=== PATIENT | female | born 1955 | race Caucasian/White ===

== ENCOUNTER 2023-06-08 09:36 | Inpatient (IN) | payer MEDICARE, OTHER, SELFPAY ==
--- NOTE | ~2023-06-08 | XR_ITS ---
EXAMINATION: XR HIP, LEFT CLINICAL INFORMATION: Pain status post fall COMPARISON: None available. TECHNIQUE: Two views of the left hip. FINDINGS: There is intertrochanteric fracture without displacement of the left hip. Soft tissues unremarkable. Visualized pelvic bones are normal XR/XR hip LT w PEL1V IMPRESSION: Intertrochanteric undisplaced fracture.
--- NOTE | ~2023-06-08 | FL_ITS ---
EXAMINATION: XR FLUOROSCOPY WITH IMAGES CLINICAL INFORMATION: Left hip fracture COMPARISON: Previous x-ray 06/08/2023 TECHNIQUE: Fluoroscopy Supervised By: Dr. Charly Chong. Fluoroscopy Time: 0.5 minutes. Cumulative Dose: 16 mGy. DAP: 0.28 mGym2. Images: 4. FINDINGS: Images demonstrate an intramedullary jose g, proximal compression/lag screw and distal cortical screw transfixing the left femoral intertrochanteric fracture with improved alignment. FL/FL guidance in OR IMPRESSION: Fluoroscopy guidance for ORIF of left femoral intertrochanteric fracture.
--- NOTE | ~2023-06-08 | XR_ITS ---
EXAMINATION: XR CHEST CLINICAL INFORMATION: Preoperative clearance COMPARISON: None TECHNIQUE: Frontal view of the chest was obtained. FINDINGS: No significant abnormality is noted involving the heart, lungs, mediastinum. There is diffuse osteopenia, dextroscoliosis, status post T12 vertebroplasty. XR/XR chest 1V IMPRESSION: No active cardiopulmonary disease
[2023-06-08 09:39] VITALS: BP 135/79; BP 140/75; PULSE 65; RESP 18; TEMP 36.4; O2SAT 95; O2SAT 97; BMI 27.8
--- NOTE | 2023-06-08 09:51 | ED_ITS ---
HPI - Fall General Chief Complaint: Fall Stated Complaint: FALL,W/L HIP PAIN W/ROTATION,-THIN,-HEADSTRIKE Time Seen by Provider: 06/08/23 09:45 Source: patient and EMS Mode of arrival: EMS Limitations: no limitations History of Present Illness HPI Narrative: 67 yo female with history of emphysema and seizures who presents to the ER from home for evaluation of left hip pain after she tripped over her dog and fell onto her left side on the ceramic floor this morning. She was unable to get up due to severe pain. She did not hit her head or lose consciousness. She is not on blood thinners. She states pain is 5/10 at rest and with any movement her pain shoots up to a 10/10. She arrives to the ER with LLE shortened and externally rotated. MD complaint: fall Onset (ago): minute(s) Fall from: standing Fall witnessed: no Place fall occurred: home Loss of consciousness: none Prolonged down time: no Symptoms prior to fall: none Context: tripped/slipped Location of injury: pelvis (left hip) Severity: moderate Severity scale (1-10): 5 Quality: sharp, stabbing and aching Associated symptoms (after fall): unable to walk Related Data Allergies Allergy/AdvReac Type Severity Reaction Status Date / Time Horse/Equine Containing Allergy Unknown RASH/SWELLING Verified 06/08/23 09:47 Products TO HORSE [Horse/Equine Product TETANUS Derivatives] Penicillins [PENICILLINS] Allergy Unknown ? Verified 06/08/23 09:47 phenobarbital [PHENOBARBITAL] Allergy Unknown ? SEIZURE Verified 06/08/23 09:47 From Novocain Allergy Unknown UNKNOWN Uncoded 05/14/20 15:39 Review of Systems 2 Review of Systems: Yes all other systems are reviewed and are negative PMFSH Social History Social History Smoked in Last 30 Days: No Use of substances other than those prescribed or required for medical reasons: No Advance Directives: Yes Advance Directives Information Provided: No Advance Directives on File: No Physical Exam 2 Vital Signs: Vital Signs: Last Vital Signs Temp 97.5 F 06/08/23 09:39 Pulse 65 06/08/23 09:39 Resp 16 06/08/23 10:00 BP 140/75 H 06/08/23 09:39 Pulse Ox 95 06/08/23 09:39 O2 Del Method Room Air 06/08/23 09:39 BMI result Body Mass Index 27.8 Appearance: Alert. Oriented X3. No acute distress. Head: normocephalic, atraumatic. Eyes: Pupils equal, round and reactive to light. ENT: Pharynx normal. No tonsillar swelling or exudate. Neck: Normal inspection. Neck supple. CVS: Normal heart rate and rhythm. Pulses normal. Respiratory: No respiratory distress. Breath sounds normal. Abdomen: Soft and nontender. +BS x4 Skin: Skin warm and dry. Normal skin color. Normal skin turgor. No rashes. Extremities: No lower extremity edema. left lower extremity is shortened and externally rotated. tender anterior and lateral left hip, unable to range at all. nontender left thigh, knee, lower leg and ankle. NV intact distally. Neuro/psych: Oriented X 3. No motor deficit. No sensory deficit. CN II-XII intact. Normal speech and cognition. Medications Administered Discontinued Medications Generic Name Dose Route Start Last Admin Trade Name Freq PRN Reason Stop Dose Admin Acetaminophen 975 mg 06/08/23 09:45 06/08/23 09:52 Acetaminophen 325 Mg Tablet PO 06/08/23 09:46 975 mg ONCE ONE Administration Oxycodone HCl 5 mg 06/08/23 09:45 06/08/23 09:52 Oxycodone Hcl Immed Release 5 Mg Tablet PO 06/08/23 09:46 5 mg ONCE ONE Administration Medical Decision Making Medical Decision Making MDM Narrative: 67-year-old female with history of emphysema and seizure disorder presents to the ER for evaluation after she tripped and fell over her dog in the kitchen this morning. Fell onto her left hip. Had immediate pain was unable to get up. No head strike or loss of consciousness. She is on anticoagulation. She has no headache or neck pain. No pain besides the left hip. She is unable to range the hip, it is externally rotated and slightly shortened. Concern for fracture. Basic lab workup was unremarkable. Chest x-ray empirically done for presumed preop clearance. X-ray of the hip confirms a nondisplaced intertrochanteric left hip fracture. Will admit orthopedic service for further treatment. Patient updated on plan of care. Pain much better after a dose of oxycodone and Tylenol. Differential Diagnosis Differential Diagnoses: The differential diagnosis associated with the presentation includes hip fracture, pelvic fracture, femur fracture, contusion Admission/Observation Consideration of admission/observation: Escalation of care including admission/observation considered Consult Healthcare Provider Management of the patient was discussed with: [employer] Supervisor Dr. Chong Lab Data MDM Lab Attestation statement: I reviewed the patient's lab results. mild anemia, no leukocytosis 06/08/23 10:12 10 10:12 Labs: Lab Results 06/08/23 Range/Units 10:12 WBC 7.2 (4.8-10.8) X10*3/uL RBC 4.30 (4.20-5.50) X10*6/uL Hgb 13.3 (12.0-16.0) g/dl Hct 39.9 (37.0-47.0) % MCV 92.8 (80.0-98.0) fL MCH 30.9 (27.0-33.0) pg MCHC 33.3 (31.0-35.0) g/dl RDW 12.5 (11.0-16.0) % Plt Count 280 (160-400) X10*3/uL MPV 10.2 (9.4-12.3) fL Immature Gran % (Auto) 0.4 (0.0-0.4) % Neut % (Auto) 72.8 (45-73) % Lymph % (Auto) 16.5 L (20-40) % [place] % (Auto) 7.9 (2-11) % Eos % (Auto) 2.1 (0-4) % Baso % (Auto) 0.3 (0-2) % Lymph # (Auto) 1.2 (1.2-4.9) X10*3/uL [place] # (Auto) 0.6 (0.1-1.2) X10*3/uL Eos # (Auto) 0.2 (0.0-0.4) X10*3/uL Baso # (Auto) 0.0 (0.0-0.2) X10*3/uL Abs Immat Gran (auto) 0.03 (0.00-0.03) X10*3/uL Absolute Neuts (auto) 5.2 (2.0-8.3) x10*3/uL Absolute Nucleated RBC 0.000 (0.0-0.012) X10*3/uL Nucleated RBC % (auto) 0.0 (0.0-0.2) /100WBC PT 11.1 (11.1-13.3) SEC INR 0.9 (0.9-1.1) APTT 28.4 (26.0-36.4) SEC Sodium 138 (135-145) mmol/L Potassium 3.5 (3.3-5.1) mmol/L Chloride 102 (96-108) mmol/L Carbon Dioxide 26 (22-29) mmol/L Anion Gap 14 (12-20) BUN 10 (9-16) mg/dL Creatinine 0.66 (0.5-1.4) mg/dL Estim Creat Clear Calc 89.6 Estimated GFR > 60 Random Glucose 109 (60-115) mg/dL Calcium 9.2 (8.4-10.2) mg/dL Magnesium 2.2 (1.6-2.6) mg/dL Total Bilirubin 0.4 (0.0-1.0) mg/dL Direct Bilirubin 0.1 (0.0-0.5) mg/dL AST 19 (5-31) U/L ALT 15 (0-31) U/L Alkaline Phosphatase 177 H (39-117) U/L Total Protein 6.9 (6.5-8.0) g/dL Albumin 4.3 (3.5-5.0) g/dL Independent Interpretation I performed an independent interpretation of an: Plain X-Ray Interpretation: XR left hip w/ acute fracture, no displacement Radiology Impression Discussion of test interpretation with radiology: I have reviewed the radiologist's reading. Radiologist Impression: EXAMINATION: XR HIP, LEFT CLINICAL INFORMATION: Pain status post fall COMPARISON: None available. TECHNIQUE: Two views of the left hip. FINDINGS: There is intertrochanteric fracture without displacement of the left hip. Soft tissues unremarkable. Visualized pelvic bones are normal XR/XR hip LT w PEL1V IMPRESSION: Intertrochanteric undisplaced fracture. EXAMINATION: XR CHEST CLINICAL INFORMATION: Preoperative clearance COMPARISON: None TECHNIQUE: Frontal view of the chest was obtained. FINDINGS: No significant abnormality is noted involving the heart, lungs, mediastinum. There is diffuse osteopenia, dextroscoliosis, status post T12 vertebroplasty. XR/XR chest 1V IMPRESSION: No active cardiopulmonary disease Independent Historian Clinical information obtained from an independent historian. History obtained from or confirmed by: Spouse and EMS External Record Review External record reviewed: Prior outpatient labs Tests considered The following testing was considered but not selected: CT head and cervical spine considered however no head strike, no headache, no neck pain Prescription Management I considered prescription management with: Pain Medication Chronic Conditions Patient?s care impacted by: Other (visual impairment) Critical Care Time Critical Care Time Critical Care Time: Yes Total Critical Care Time: 31 Attestation: I have personally provided critical care time exclusive of time spent on separately billable procedures. Time includes review of lab data, radiology results, discussion with consultants, and monitoring for potential decompensation. Intervention performed as documented. Discharge Plan Discharge Clinical Impression: Closed fracture of left hip Qualifiers: Encounter type: initial encounter Qualified Code(s): S72.002A - Fracture of unspecified part of neck of left femur, initial encounter for closed fracture Patient Disposition: Admitted As Inpatient
[2023-06-08] MEDS: Acetaminophen 325 MG TABLET 975 MG PO (09:52)
[2023-06-08] MEDS: oxyCODONE HCl Immed Release 5 MG TABLET PO (09:52)
[2023-06-08 10:00] VITALS: RESP 16
[2023-06-08 10:16] LABS: MANUAL DIFF FLAG NO
[2023-06-08 10:18] LABS: Basophils Percent Auto 0.3 % (0-2); Eosinophils Absolute Auto 0.2 X10*3/uL (0.0-0.4); Eosinophils Percent Auto 2.1 % (0-4); Hematocrit 39.9 % (37.0-47.0); Hemoglobin 13.3 g/dl (12.0-16.0); Imm Gran Abs Auto 0.03 X10*3/uL (0.00-0.03); Imm Gran Pct Auto 0.4 % (0.0-0.4); Lymphocytes Absolute Auto 1.2 X10*3/uL (1.2-4.9); Lymphocytes Percent Auto 16.5 % (20-40); Mean Corpuscular HGB Conc 33.3 g/dl (31.0-35.0); Mean Corpuscular Hemoglobin 30.9 pg (27.0-33.0); Mean Corpuscular Volume 92.8 fL (80.0-98.0); Mean Platelet Volume 10.2 fL (9.4-12.3); Monocytes Absolute Auto 0.6 X10*3/uL (0.1-1.2); Monocytes Percent Auto 7.9 % (2-11); Neutrophils Absolute Auto 5.2 x10*3/uL (2.0-8.3); Neutrophils Percent Auto 72.8 % (45-73); Platelet Count 280 X10*3/uL (160-400); Red Cell Distribution Width 12.5 % (11.0-16.0); White Blood Count 7.2 X10*3/uL (4.8-10.8)
[2023-06-08 10:26] LABS: INTERNATIONAL NORM RATIO 0.9 (0.9-1.1); Prothrombin Time 11.1 SEC (11.1-13.3)
[2023-06-08 10:29] LABS: Partial Thromboplastin Time 28.4 SEC (26.0-36.4)
[2023-06-08 10:36] LABS: Alanine Aminotransferase 15 U/L (0-31); Albumin Level 4.3 g/dL (3.5-5.0); Alkaline Phosphatase 177 U/L (39-117); Anion Gap 14 (12-20); Aspartate Amino Transferase 19 U/L (5-31); Bilirubin Direct 0.1 mg/dL (0.0-0.5); Bilirubin Total 0.4 mg/dL (0.0-1.0); Blood Urea Nitrogen 10 mg/dL (9-16); Calcium 9.2 mg/dL (8.4-10.2); Carbon Dioxide 26 mmol/L (22-29); Chloride 102 mmol/L (96-108); Creatinine Clr Calc Pharmacy 89.6; Estimated Glomerular Filt Rate > 60; Glucose Random 109 mg/dL (60-115); Magnesium 2.2 mg/dL (1.6-2.6); Potassium 3.5 mmol/L (3.3-5.1); Sodium 138 mmol/L (135-145); Total Protein 6.9 g/dL (6.5-8.0)
[2023-06-08 13:35] VITALS: BP 106/66; PULSE 75; RESP 18; O2SAT 96
--- NOTE | 2023-06-08 13:39 | PM.CNOR ---
History of Present Illness HPI Consult date: 06/08/23 Chief complaint: FALL,W/L HIP PAIN W/ROTATION,-THIN,-HEADSTRIKE Narrative: Left hip pain after a mechanical fall. Ambulatory at baseline. Complains of left hip pain. Review of Systems Review of Systems: Yes all other systems are reviewed and are negative [facility] Social History Social History Smoked in Last 30 Days: No Use of substances other than those prescribed or required for medical reasons: No Advance Directives: Yes Advance Directives Information Provided: No Advance Directives on File: No Meds Allergies Allergy/AdvReac Type Severity Reaction Status Date / Time Horse/Equine Containing Allergy Unknown RASH/SWELLING Verified 06/08/23 09:47 Products TO HORSE [Horse/Equine Product TETANUS Derivatives] Penicillins [PENICILLINS] Allergy Unknown ? Verified 06/08/23 09:47 phenobarbital [PHENOBARBITAL] Allergy Unknown ? SEIZURE Verified 06/08/23 09:47 From Novocain Allergy Unknown UNKNOWN Uncoded 05/14/20 15:39 Physical Exam Vital Signs: Vital Signs: Last Vital Signs Temp 97.5 F 06/08/23 09:39 Pulse 75 06/08/23 13:35 Resp 18 06/08/23 13:35 BP 106/66 06/08/23 13:35 Pulse Ox 96 06/08/23 13:35 O2 Del Method Room Air 06/08/23 13:35 BMI result Body Mass Index 27.8 Const: General: cooperative, healthy appearing, no acute distress, well developed and alert HEENT: Head: Yes normal to inspection, Yes normocephalic and Yes atraumatic Mouth: moist mucous membranes Eyes: General: appearance normal, both eyes and all related structures EOM: EOMs intact bilaterally Chest: Other: no audible wheezing. Resp: Other: No audible wheezing Effort & Inspection: normal respiratory effort Cardio: Other: Radial pulse palpable with no rythmic abnormalities Back/Spine/Pelvis: Cervical Spine: normal cervical lordosis Skin: General skin exam: no rashes or lesions noted Neuro: General: no focal motor deficits Extrem: Other: SILT left foot Pain with log roll SKin intact DP+2 Psych: Appearance: grossly normal and well kempt Mental Status: mental status grossly normal Speech and movement: Normal speech and movement present Affect: normal affect Attitude: cooperative Results Labs 06/08/23 10:12 06/08/23 10:12 Labs: Abnormal lab results 06/08/23 Range/Units 10:12 Lymph % (Auto) 16.5 L (20-40) % Alkaline Phosphatase 177 H (39-117) U/L H & H 06/08/23 Range/Units 10:12 Hgb 13.3 (12.0-16.0) g/dl Hct 39.9 (37.0-47.0) % Coagulation 06/08/23 Range/Units 10:12 INR 0.9 (0.9-1.1) All other labs normal. Diagnostic results Hip x-ray: image reviewed (Left hip IT fracture) Assessment and Plan (1) Closed fracture of left hip: Qualifiers: Encounter type: initial encounter Qualified Code(s): S72.002A - Fracture of unspecified part of neck of left femur, initial encounter for closed fracture Status: Acute Plan Left hip IT fracture NPO P midnight and surgery pending medical clearance I discussed the risks benefits and alternatives including but not limited to the risk of pain, infection, stiffness, need for further surgery as well as potential medical complications such as blood clots, pulmonary embolism and cardiac complications. Time Spent With Patient Time: Total time managing care of this patient today ____ minutes. Procedures Date of Service Date of Service: 06/08/23
--- NOTE | 2023-06-08 13:49 | PHA.MEDREC ---
Pharmacy Consult ? Medication Reconciliation Pharmacy has completed the medication reconciliation. Patient reported all medications. Sylwia Syed, EdisonD
--- NOTE | 2023-06-08 13:49 | HE.PHANOTE ---
Spoke with patient about her documented PCN allergy. Patient does not believe she has an allergy to PCN, she reported her mom was severely allergic so her mom also thought childern would be too. Patient states that the abx that starts eu does not agree with her. Sylwia Syed, PharmD
[2023-06-08] MEDS: ondansetron HCL 4 MG/2 ML VIAL IVPUSH (14:33)
--- NOTE | 2023-06-08 14:48 | P.HPHOSP_ITS ---
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 Pt is visually impaired but ambulates on her own at home. States she tripped over her oldest dog this morning when she did not see him coming out of the kitchen. Pt fell on her left side on the ceramic flow and immediately felt 10/10 pain. Denies LOC, head strike. Reports some nausea and feeling unwell when she tries to move, but otherwise denies any other symptoms or acute complaints. No headache. Denies fever, chills, abdominal pain. No chest pain/pressure, palpitations. No SOB. Currently experiencing 5/10 pain at rest. In the ED patient was hemodynamically stable with slightly elevated BP of 140/75. Labs were grossly unremarkable. H&H stable. No leukocytosis. Electrolytes WNL. Hepatic and renal function WNL. CXR showed no active cardiopulmonary disease. X-ray of left hip showed intertrochanteric nondisplaced fracture. Pt was treated with oxycodone 5 mg p.o., acetaminophen, and ondansetron. Pt will be admitted to the hospital for treatment of left hip fracture with likely surgical intervention tomorrow. Review of Systems 2 Review of Systems: Left hip pain Mechanical fall at home without LOC or headstrike Nausea associated with pain PMFSH Social History Smoked in Last 30 Days: No Use of substances other than those prescribed or required for medical reasons: No Advance Directives: Yes Advance Directives Information Provided: No Advance Directives on File: No Meds Allergies Allergy/AdvReac Type Severity Reaction Status Date / Time Horse/Equine Containing Allergy Unknown RASH/SWELLING Verified 06/08/23 09:47 Products TO HORSE [Horse/Equine Product TETANUS Derivatives] Penicillins [PENICILLINS] Allergy Unknown ? Verified 06/08/23 09:47 phenobarbital [PHENOBARBITAL] Allergy Unknown ? SEIZURE Verified 06/08/23 09:47 From Novocain Allergy Unknown UNKNOWN Uncoded 05/14/20 15:39 Active Medications: Current Medications Cefazolin Sodium/Dextrose (Ancef) 2 gm in 50 mls @ 100 mls/hr IV PREOP ONE Stop: 06/09/23 11:13 Home Medications Medication Instructions Recorded Confirmed Last Taken Type albuterol sulfate 90 mcg/actuation 2 puff inhalation Q4-6H PRN SOB 06/08/23 06/08/23 Unknown History aerosol inhaler (Ventolin HFA) atorvastatin 40 mg tablet 40 mg PO BEDTIME 06/08/23 06/08/23 06/07/23 History ergocalciferol (vitamin D2) 1,250 1,250 mcg PO WE 06/08/23 06/08/23 06/07/23 History mcg (50,000 unit) capsule fluticasone propionate 115 2 puff inhalation BID 06/08/23 06/08/23 06/08/23 History mcg-salmeterol 21 mcg/actuation HFA inhaler (Advair HFA) fluticasone propionate 50 1 spray intranasal DAILY 06/08/23 06/08/23 06/07/23 History mcg/actuation nasal spray,suspension montelukast 10 mg tablet 10 mg PO BEDTIME 06/08/23 06/08/23 06/07/23 History phenytoin sodium extended 100 mg 300 mg PO BEDTIME 06/08/23 06/08/23 06/07/23 History capsule Physical Exam 2 Vital Signs and Narrative: Vital Signs: Last Vital Signs Temp 97.5 F 06/08/23 09:39 Pulse 75 06/08/23 13:35 Resp 18 06/08/23 13:35 BP 106/66 06/08/23 13:35 Pulse Ox 96 06/08/23 13:35 O2 Del Method Room Air 06/08/23 13:35 BMI result Body Mass Index 27.8 Constitutional: Alert, in no acute distress. Mental Status: Oriented to person, place and time. Eyes: Pupils are equal, round, and reactive to light. Ear, Nose, and Throat: Oropharynx clear, mucous membranes moist. Ears and nose without deformities. Trachea midline. Respiratory: Clear to auscultation bilaterally. No wheezing, rales, or rhonchi. Cardiovascular: S1, S2 regular. No murmurs, rubs, or gallops. Gastrointestinal: Abdomen soft, non-tender, non-distended. Normal bowel sounds. Neurologic: Cranial nerves II-XII are grossly intact bilaterally. No focal neurological deficits. Moves all extremities spontaneously. Skin: No rashes or lesions noted. Extremities: No edema. Left leg shortened and externally rotated. Psychiatric: Normal mood and affect. Results Labs 06/08/23 10:12 06/08/23 10:12 Labs: Laboratory Results - last 24 hr 06/08/23 10:12 MCV 92.8 MCH 30.9 MCHC 33.3 RDW 12.5 Plt Count 280 MPV 10.2 Immature Gran % (Auto) 0.4 Neut % (Auto) 72.8 Lymph % (Auto) 16.5 L [place] % (Auto) 7.9 Eos % (Auto) 2.1 Baso % (Auto) 0.3 Lymph # (Auto) 1.2 [place] # (Auto) 0.6 Eos # (Auto) 0.2 Baso # (Auto) 0.0 Abs Immat Gran (auto) 0.03 Absolute Neuts (auto) 5.2 Absolute Nucleated RBC 0.000 Nucleated RBC % (auto) 0.0 PT 11.1 INR 0.9 APTT 28.4 Anion Gap 14 Estim Creat Clear Calc 89.6 Estimated GFR > 60 Random Glucose 109 Calcium 9.2 Magnesium 2.2 Total Bilirubin 0.4 Direct Bilirubin 0.1 AST 19 ALT 15 Alkaline Phosphatase 177 H Total Protein 6.9 Albumin 4.3 Imaging Radiologist's Impressions: Impressions Chest X-Ray 06/08/23 10:35 IMPRESSION: No active cardiopulmonary disease Hip/Pelvis X-Ray 06/08/23 10:35 IMPRESSION: Intertrochanteric undisplaced fracture. 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 The patient will be admitted to the hospital for treatment of left hip fracture with likely surgical procedure tomorrow. Left hip fracture X-ray shows left intratrochanteric nondisplaced fracture Ortho consulted, plan on performing surgery in the morning Analgesics for pain management NPO after midnight Pneumatic boots for DVT prophylaxis Patient is at intermediate risk for planned procedure, no further workup indicated at this time Epilepsy Continue phenytoin Emphysema Not in acute exacerbation Continue home inhalers HLD Continue statin Full Code Attending:?Dr. Sarkar DVT Prophylaxis: Pneumatic boots given surgical procedure tomorrow Pt will require a hospitalization of at least two nights for treatment of?left hip fracture with surgical procedure. Time Spent With Patient Time: Total time managing care of this patient today ____ minutes. Quality Stroke Does the patient have a stroke diagnosis?: No VTE Prior VTE?: No VTE Risk Level:: Medical - moderate - high VTE Device Contraindication: N/A - Device Ordered VTE Drug Contraindication: Treatment Not Indicated
--- NOTE | 2023-06-08 15:00 | PC.NURSE ---
Pt reporting nausea, states pain but declines pain meds at this time, requesting warm blanket and given. Plan for surgery tomorrow per pt per Dr Chong.
--- NOTE | 2023-06-08 18:41 | PC.NURSE ---
to take all jewelry home.
[2023-06-08 18:44] VITALS: BP 124/68; PULSE 83; RESP 18; TEMP 36.5; O2SAT 92
[2023-06-08] MEDS: Atorvastatin Calcium 40 MG TABLET PO (20:58)
[2023-06-08] MEDS: Montelukast Sodium 10 MG TABLET PO (20:58)
[2023-06-08] MEDS: Phenytoin Sodium Extended 100 MG CAPSULE 300 MG PO (20:59)
[2023-06-08] MEDS: 0.9 % Sodium Chloride Flush 3 ML SYRINGE IVFLUSH (20:59)
[2023-06-08] MEDS: Morphine Sulfate 2 MG/ML CARTRIDGE IVPUSH (21:59)
[2023-06-09] VITALS (13 sets, daily range): BP systolic 111–164; BP diastolic 58–87; PULSE 73–84; RESP 14–18; TEMP 36–37.1; O2SAT 93–100
[2023-06-09] MEDS: Morphine Sulfate 2 MG/ML CARTRIDGE IVPUSH ×2 (03:51→09:10)
[2023-06-09] MEDS: 0.9 % Sodium Chloride Flush 3 ML SYRINGE IVFLUSH ×3 (09:12→20:19)
--- NOTE | 2023-06-09 09:35 | HO.PM.IMPN ---
Subjective Subjective Date of Service: 06/09/23 Interval History: lle pain Physical Exam Vital Signs: Vital Signs: Last Vital Signs Temp 96.9 F 06/09/23 07:40 Pulse 78 06/09/23 07:40 Resp 18 06/09/23 07:40 BP 117/58 L 06/09/23 07:40 Pulse Ox 98 06/09/23 07:40 O2 Del Method Nasal Cannula 06/09/23 07:40 O2 Flow Rate 2 06/09/23 07:40 BMI result Body Mass Index 27.8 Const: General: cooperative, healthy appearing, no acute distress, well developed and alert HEENT: Head: Yes normal to inspection, Yes normocephalic and Yes atraumatic Mouth: moist mucous membranes Eyes: General: appearance normal, both eyes and all related structures EOM: EOMs intact bilaterally Chest: Other: no audible wheezing. Resp: Other: No audible wheezing Effort & Inspection: normal respiratory effort Cardio: Other: Radial pulse palpable with no rythmic abnormalities Back/Spine/Pelvis: Cervical Spine: normal cervical lordosis Skin: General skin exam: no rashes or lesions noted Neuro: General: no focal motor deficits Extrem: Other: SILT left foot Pain with log roll SKin intact DP+2 Psych: Appearance: grossly normal and well kempt Mental Status: mental status grossly normal Speech and movement: Normal speech and movement present Affect: normal affect Attitude: cooperative Objective Data Active Medications Acetaminophen (Acetaminophen 325 Mg Tablet) 650 mg PO Q6H PRN PRN Reason: Pain, Mild (Pain Scale 1-3) Albuterol Sulfate (Albuterol Sulfate 90 Mcg 8 Gm Inhaler) 2 puff INHALE Q4H PRN PRN Reason: Shortness of Breath/Wheezing Atorvastatin Calcium (Atorvastatin Calcium 40 Mg Tablet) 40 mg PO BEDTIME [facility] Last Admin: 06/08/23 20:58 Dose: 40 mg Documented By: JEWELS Docusate Sodium (Docusate Sodium 100 Mg Capsule) 100 mg PO DAILY PRN PRN Reason: Constipation Ergocalciferol (Ergocalciferol (Vitamin D2) 1,250 Mcg Capsule) 1,250 mcg PO We@0900 [facility] Fluticasone Propionate (Fluticasone Propionate Nasal 16 Gm [place]) 1 spray NOSTRIL-B DAILY [facility] Last Admin: 06/09/23 09:12 Dose: Not Given Documented By: CATALINA Non-Admin Reason: Patient Refused Fluticasone/Vilanterol (Fluticasone/Vilanterol 100/25 Blst.W.Dev) 1 puff INHALE RDAILY [facility] Cefazolin Sodium/Dextrose (Ancef) 2 gm in 50 mls @ 100 mls/hr IV PREOP ONE Stop: 06/09/23 11:13 Montelukast Sodium (Montelukast Sodium 10 Mg Tablet) 10 mg PO BEDTIME [facility] Last Admin: 06/08/23 20:58 Dose: 10 mg Documented By: JEWELS Morphine Sulfate (Morphine Sulfate 2 Mg/Ml Cartridge) 2 mg IVPUSH Q4H PRN; Protocol PRN Reason: Pain, Severe (Pain Scale 7-10) Last Admin: 06/09/23 09:10 Dose: 2 mg Documented By: CATALINA Ondansetron HCl (Ondansetron Hcl 4 Mg/2 Ml Vial) 4 mg IVPUSH Q8H PRN PRN Reason: Nausea and Vomiting Phenytoin Sodium (Phenytoin Sodium Extended 100 Mg Capsule) 300 mg PO BEDTIME [facility] Last Admin: 06/08/23 20:59 Dose: 300 mg Documented By: JEWELS Sodium Chloride (0.9 % Sodium Chloride Flush 3 Ml Syringe) 3 ml IVFLUSH QSHIFT [facility] Last Admin: 06/09/23 09:12 Dose: 3 ml Documented By: CATALINA Labs 06/08/23 10:12 06/08/23 10:12 Labs: Laboratory Results - last 24 hr 06/08/23 10:12 MCV 92.8 MCH 30.9 MCHC 33.3 RDW 12.5 Plt Count 280 MPV 10.2 Immature Gran % (Auto) 0.4 Neut % (Auto) 72.8 Lymph % (Auto) 16.5 L [place] % (Auto) 7.9 Eos % (Auto) 2.1 Baso % (Auto) 0.3 Lymph # (Auto) 1.2 [place] # (Auto) 0.6 Eos # (Auto) 0.2 Baso # (Auto) 0.0 Abs Immat Gran (auto) 0.03 Absolute Neuts (auto) 5.2 Absolute Nucleated RBC 0.000 Nucleated RBC % (auto) 0.0 PT 11.1 INR 0.9 APTT 28.4 Anion Gap 14 Estim Creat Clear Calc 89.6 Estimated GFR > 60 Random Glucose 109 Calcium 9.2 Magnesium 2.2 Total Bilirubin 0.4 Direct Bilirubin 0.1 AST 19 ALT 15 Alkaline Phosphatase 177 H Total Protein 6.9 Albumin 4.3 Assessment and Plan (1) Closed fracture of left hip: Status: Acute Plan 67F PMH COPD, hld, osteoporosis, TBI, epilepsy, presented with left hip pain after mechanical fall complicated by left hip fracture left hip fracture plan for surgery today epilepsy phenytoin copd stable hld statin full code reason for continued hospitalization:surgery today Time Spent With Patient Time: Total time managing care of this patient today ____ minutes. Quality Stroke Does the patient have a stroke diagnosis?: No VTE Prior VTE?: No VTE Risk Level:: Medical - moderate - high VTE Device Contraindication: N/A - Device Ordered VTE Drug Contraindication: Treatment Not Indicated
--- NOTE | 2023-06-09 09:40 | MHC.CM.PN ---
Addendum entered by Mary [place] 06/09/23 15:36: [facility] bed pending PT eval and insurance authorization. They are 1st choice. [facility] are following. Original Note: IMM 06/09/23 s/p fall, O.R. today to repair HIP FX She lives with her spouse. She is independent at baseline. She tripped over the dog. She uses 2L O2 @ [facility]. [facility] is the O2 provider. A new HCP has been documented. It has been scanned into EMR. DP STR via BLS. Preferences obtained and referrals have been sent to STR facilities. [facility] have been sent clinical info to review. Patient will need insurance authorization.
[2023-06-09] MEDS: Albuterol Sulfate (0.083%) 2.5 MG/3 ML VIAL.NEB INHALE (11:45)
--- NOTE | 2023-06-09 15:28 | PC.NURSE ---
Pt returned to s3 from PACU at 1525, at this time pt drowsy but reponsive to voive. Pt denies pain at this time. Left leg has two surgical dressing in place no staining. Pt has + pulses in left leg.
--- NOTE | 2023-06-09 16:24 | P.BOP_ITS ---
Brief Operative Note Date of Service: 06/09/23 Pre-op diagnosis: left hip IT fx Post-op diagnosis: same Procedure: Left hip IMN Implants: Rahul [id number] 125 deg imn with 100 mm hip screw and 40 mm distal interlock Surgeon: Charly Chong MD Anesthesia: GETA and local Was an Tufting Machine Fixer used for this Procedure?: No Estimated blood loss (mL): 100 IV fluids (mL): 750 Pathology: none sent Condition: stable Disposition: PACU
[2023-06-09] MEDS: Phenytoin Sodium Extended 100 MG CAPSULE 300 MG PO (20:18)
[2023-06-09] MEDS: Montelukast Sodium 10 MG TABLET PO (20:19)
[2023-06-09] MEDS: Atorvastatin Calcium 40 MG TABLET PO (20:19)
[2023-06-10] MEDS: Morphine Sulfate 2 MG/ML CARTRIDGE IVPUSH ×3 (02:51→20:29)
[2023-06-10 03:18] VITALS: BP 123/71; PULSE 74; RESP 22; TEMP 36.3; O2SAT 92
[2023-06-10 06:06] LABS: Hematocrit 31.1 % (37.0-47.0); Hematocrit 31.4 % (37.0-47.0); Hemoglobin 10.5 g/dl (12.0-16.0); Mean Corpuscular HGB Conc 33.4 g/dl (31.0-35.0); Mean Corpuscular HGB Conc 33.8 g/dl (31.0-35.0); Mean Corpuscular Hemoglobin 31.3 pg (27.0-33.0); Mean Corpuscular Hemoglobin 31.4 pg (27.0-33.0); Mean Corpuscular Volume 92.6 fL (80.0-98.0); Mean Platelet Volume 10.8 fL (9.4-12.3); Mean Platelet Volume 11.2 fL (9.4-12.3); Platelet Count 216 X10*3/uL (160-400); Platelet Count 218 X10*3/uL (160-400); Red Blood Count 3.34 X10*6/uL (4.20-5.50); Red Blood Count 3.36 X10*6/uL (4.20-5.50); Red Cell Distribution Width 12.6 % (11.0-16.0); Red Cell Distribution Width 12.7 % (11.0-16.0); White Blood Count 10.7 X10*3/uL (4.8-10.8); White Blood Count 10.8 X10*3/uL (4.8-10.8)
[2023-06-10 06:28] LABS: Anion Gap 16 (12-20); Blood Urea Nitrogen 18 mg/dL (9-16); Calcium 8.8 mg/dL (8.4-10.2); Carbon Dioxide 25 mmol/L (22-29); Chloride 101 mmol/L (96-108); Estimated Glomerular Filt Rate > 60; Glucose Fasting 124 mg/dL (60-99); Glucose Random 123 mg/dL (60-115); Potassium 4.4 mmol/L (3.3-5.1); Sodium 138 mmol/L (135-145)
[2023-06-10 07:39] VITALS: BP 116/61; PULSE 92; RESP 18; TEMP 36; O2SAT 95
[2023-06-10] MEDS: Fluticasone/Vilanterol 100/25 BLST.W.DEV 1 PUFF INHALE (07:59)
[2023-06-10 08:00] VITALS: PULSE 87; RESP 18; O2SAT 95
[2023-06-10] MEDS: oxyCODONE HCl Immed Release 5 MG TABLET PO (08:15)
[2023-06-10] MEDS: 0.9 % Sodium Chloride Flush 3 ML SYRINGE IVFLUSH ×3 (08:16→20:17)
--- NOTE | 2023-06-10 11:56 | P.PNIM_ITS ---
Subjective Subjective Date of Service: 06/10/23 Interval History: hip pain Physical Exam 2 Vital Signs: Vital Signs: Last Vital Signs Temp 96.8 F 06/10/23 07:39 Pulse 87 06/10/23 08:00 Resp 18 06/10/23 08:00 BP 116/61 06/10/23 07:39 Pulse Ox 95 06/10/23 07:39 O2 Del Method Nasal Cannula 06/10/23 07:39 O2 Flow Rate 2 06/10/23 07:39 BMI result Body Mass Index 27.8 Const: General: cooperative, healthy appearing, no acute distress, well developed and alert HEENT: Head: Yes normal to inspection, Yes normocephalic and Yes atraumatic Mouth: moist mucous membranes Eyes: General: appearance normal, both eyes and all related structures EOM: EOMs intact bilaterally Chest: Other: no audible wheezing. Resp: Other: No audible wheezing Effort & Inspection: normal respiratory effort Cardio: Other: Radial pulse palpable with no rythmic abnormalities Back/Spine/Pelvis: Cervical Spine: normal cervical lordosis Skin: General skin exam: no rashes or lesions noted Neuro: General: no focal motor deficits Extrem: Other: SILT left foot Pain with log roll SKin intact DP+2 Psych: Appearance: grossly normal and well kempt Mental Status: mental status grossly normal Speech and movement: Normal speech and movement present Affect: normal affect Attitude: cooperative Objective Data Active Medications Acetaminophen (Acetaminophen 325 Mg Tablet) 650 mg PO Q6H PRN PRN Reason: Pain, Mild (Pain Scale 1-3) Albuterol Sulfate (Albuterol Sulfate 90 Mcg 8 Gm Inhaler) 2 puff INHALE Q4H PRN PRN Reason: Shortness of Breath/Wheezing Atorvastatin Calcium (Atorvastatin Calcium 40 Mg Tablet) 40 mg PO BEDTIME [facility] Last Admin: 06/09/23 20:19 Dose: 40 mg Documented By: ROBEL Docusate Sodium (Docusate Sodium 100 Mg Capsule) 100 mg PO DAILY PRN PRN Reason: Constipation Ergocalciferol (Ergocalciferol (Vitamin D2) 1,250 Mcg Capsule) 1,250 mcg PO We@0900 [facility] Fentanyl (Fentanyl Citrate/Pf 100 Mcg/2 Ml Vial) 50 mcg IVPUSH Q5M PRN; Protocol PRN Reason: Pain, Severe (Pain Scale 7-10) Fluticasone Propionate (Fluticasone Propionate Nasal 16 Gm [place]) 1 spray NOSTRIL-B DAILY [facility] Last Admin: 06/10/23 08:14 Dose: Not Given Documented By: JAKE Non-Admin Reason: Med Not Available Fluticasone/Vilanterol (Fluticasone/Vilanterol 100/25 Blst.W.Dev) 1 puff INHALE RDAILY [facility] Last Admin: 06/10/23 07:59 Dose: 1 puff Documented By: MEGA Montelukast Sodium (Montelukast Sodium 10 Mg Tablet) 10 mg PO BEDTIME [facility] Last Admin: 06/09/23 20:19 Dose: 10 mg Documented By: RBOEL Morphine Sulfate (Morphine Sulfate 2 Mg/Ml Cartridge) 2 mg IVPUSH Q4H PRN; Protocol PRN Reason: Pain, Severe (Pain Scale 7-10) Last Admin: 06/10/23 11:44 Dose: 2 mg Documented By: JAKE Ondansetron HCl (Ondansetron Hcl 4 Mg/2 Ml Vial) 4 mg IVPUSH Q8H PRN PRN Reason: Nausea and Vomiting Phenytoin Sodium (Phenytoin Sodium Extended 100 Mg Capsule) 300 mg PO BEDTIME [facility] Last Admin: 06/09/23 20:18 Dose: 300 mg Documented By: ROBEL Sodium Chloride (0.9 % Sodium Chloride Flush 3 Ml Syringe) 3 ml IVFLUSH QSHIFT [facility] Last Admin: 06/10/23 08:16 Dose: 3 ml Documented By: JAKE Labs 06/10/23 05:25 06/10/23 05:25 Labs: Laboratory Results - last 24 hr 06/10/23 06/10/23 06/10/23 05:25 05:25 05:25 MCV 94.0 92.6 MCH 31.4 31.3 MCHC 33.4 RDW Plt Count MPV Absolute Nucleated RBC Nucleated RBC % (auto) Anion Gap Estim Creat Clear Calc Estimated GFR Random Glucose Fasting Glucose Calcium 06/10/23 06/10/23 06/10/23 05:25 05:25 05:25 MCV MCH MCHC 33.8 RDW 12.6 12.7 Plt Count 216 218 MPV 11.2 Absolute Nucleated RBC Nucleated RBC % (auto) Anion Gap Estim Creat Clear Calc Estimated GFR Random Glucose Fasting Glucose Calcium 06/10/23 06/10/23 06/10/23 05:25 05:25 05:25 MCV MCH MCHC RDW Plt Count MPV 10.8 Absolute Nucleated RBC 0.000 0.000 Nucleated RBC % (auto) 0.0 0.0 Anion Gap 16 Estim Creat Clear Calc 91.0 Estimated GFR > 60 Random Glucose 123 H Fasting Glucose 124 H Calcium 8.8 Assessment and Plan (1) Closed fracture of left hip: Status: Acute Plan 67F PMH COPD, hld, osteoporosis, TBI, epilepsy, presented with left hip pain after mechanical fall complicated by left hip fracture left hip fracture pod 1 pain control pt epilepsy phenytoin copd stable hld statin full code reason for continued hospitalization:pt, pain control Time Spent With Patient Time: Total time managing care of this patient today ____ minutes. Quality Stroke Does the patient have a stroke diagnosis?: No VTE Prior VTE?: No VTE Risk Level:: Medical - moderate - high VTE Device Contraindication: N/A - Device Ordered VTE Drug Contraindication: Treatment Not Indicated
--- NOTE | 2023-06-10 12:18 | PM.PNORT ---
Subjective Subjective Date of Service: 06/10/23 Principal diagnosis: left hip fx Interval history: No overnight events Physical Exam Vital Signs: Vital Signs: Last Vital Signs Temp 96.8 F 06/10/23 07:39 Pulse 87 06/10/23 08:00 Resp 18 06/10/23 08:00 BP 116/61 06/10/23 07:39 Pulse Ox 95 06/10/23 07:39 O2 Del Method Nasal Cannula 06/10/23 07:39 O2 Flow Rate 2 06/10/23 07:39 BMI result Body Mass Index 27.8 Extrem: Other: dressing c/d/i moving toes and SILT Procedures Date of Service Date of Service: 06/10/23 Progress Note: A&P Assessment and plan (1) Closed fracture of left hip: Status: Acute Plan POD #1 s/p left hip IMN OOB with PT-BID PO pain control lovenox and sequentials dispo planning Time Spent With Patient Time: Total time managing care of this patient today ____ minutes. Quality Stroke Does the patient have a stroke diagnosis?: No VTE Prior VTE?: No VTE Risk Level:: Medical - moderate - high VTE Device Contraindication: N/A - Device Ordered VTE Drug Contraindication: Treatment Not Indicated
--- NOTE | 2023-06-10 12:22 | HO.POSTANES ---
Post Anesthesia Evaluation Post Anesthesia Evaluation Date of Service: 06/09/23 Vital Signs: Vital Signs Temp Pulse Resp BP Pulse Ox O2 Del Method O2 Flow Rate 06/10/23 08:00 87 18 06/10/23 07:39 96.8 F 92 18 116/61 95 Nasal Cannula 2 06/10/23 03:18 97.3 F 74 22 H 123/71 92 Nasal Cannula 2 Anesthesia: General Mental Status: Awake Pain Control: Satisfactory Nausea/Vomiting: None Hydration: Adequate Anesthesia-Related Issues: No Anes. Related Issues
[2023-06-10] MEDS: Enoxaparin Sodium 40 MG/0.4 ML SYRINGE SUBCUT (14:19)
[2023-06-10] MEDS: ceFAZolin Sodium/Dextrose,Iso 2 GM/50 ML PIGGYBACK IV (14:19)
[2023-06-10] MEDS: ondansetron HCL 4 MG/2 ML VIAL IVPUSH (14:24)
[2023-06-10 15:16] VITALS: BP 138/65; PULSE 95; RESP 18; TEMP 36.3; O2SAT 98
[2023-06-10 17:12] VITALS: BP 138/65; PULSE 95; O2SAT 93
[2023-06-10 19:23] VITALS: BP 142/65; PULSE 88; RESP 16; TEMP 36.6; O2SAT 99
[2023-06-10] MEDS: Atorvastatin Calcium 40 MG TABLET PO (20:17)
[2023-06-10] MEDS: Phenytoin Sodium Extended 100 MG CAPSULE 300 MG PO (20:17)
[2023-06-10] MEDS: Montelukast Sodium 10 MG TABLET PO (20:17)
[2023-06-11] MEDS: Acetaminophen 325 MG TABLET 650 MG PO ×2 (00:06→11:02)
[2023-06-11] MEDS: Morphine Sulfate 2 MG/ML CARTRIDGE IVPUSH ×3 (00:06→19:54)
[2023-06-11 03:43] VITALS: BP 113/59; PULSE 83; RESP 16; TEMP 36.1; O2SAT 96
[2023-06-11 05:41] LABS: Hematocrit 28.8 % (37.0-47.0); Hemoglobin 9.6 g/dl (12.0-16.0); Mean Corpuscular HGB Conc 33.3 g/dl (31.0-35.0); Mean Corpuscular Hemoglobin 30.9 pg (27.0-33.0); Mean Corpuscular Volume 92.6 fL (80.0-98.0); Mean Platelet Volume 10.5 fL (9.4-12.3); Platelet Count 185 X10*3/uL (160-400); Red Blood Count 3.11 X10*6/uL (4.20-5.50); Red Cell Distribution Width 12.4 % (11.0-16.0); White Blood Count 7.7 X10*3/uL (4.8-10.8)
[2023-06-11 06:12] LABS: Anion Gap 12 (12-20); Blood Urea Nitrogen 11 mg/dL (9-16); Calcium 8.5 mg/dL (8.4-10.2); Carbon Dioxide 29 mmol/L (22-29); Chloride 99 mmol/L (96-108); Creatinine Clr Calc Pharmacy 107.5; Estimated Glomerular Filt Rate > 60; Glucose Fasting 105 mg/dL (60-99); Potassium 3.9 mmol/L (3.3-5.1); Sodium 136 mmol/L (135-145)
[2023-06-11] MEDS: Fluticasone/Vilanterol 100/25 BLST.W.DEV 1 PUFF INHALE (07:35)
[2023-06-11 07:36] VITALS: PULSE 76; RESP 18; O2SAT 97
[2023-06-11 08:00] VITALS: BP 133/67; PULSE 90; RESP 16; TEMP 36.1; O2SAT 97
[2023-06-11] MEDS: 0.9 % Sodium Chloride Flush 3 ML SYRINGE IVFLUSH ×2 (09:26→15:41)
--- NOTE | 2023-06-11 10:44 | HO.PM.IMPN ---
Subjective Subjective Date of Service: 06/11/23 Interval History: pain controlled at rest, in pain wiht movement Physical Exam Vital Signs: Vital Signs: Last Vital Signs Temp 97.0 F 06/11/23 08:00 Pulse 90 06/11/23 08:00 Resp 16 06/11/23 08:00 BP 133/67 06/11/23 08:00 Pulse Ox 97 06/11/23 08:00 O2 Del Method Nasal Cannula 06/11/23 08:00 O2 Flow Rate 3.0 06/11/23 08:00 BMI result Body Mass Index 27.8 Extrem: Other: dressing c/d/i moving toes and SILT Objective Data Active Medications Acetaminophen (Acetaminophen 325 Mg Tablet) 650 mg PO Q6H PRN PRN Reason: Pain, Mild (Pain Scale 1-3) Last Admin: 06/11/23 00:06 Dose: 650 mg Documented By: ROBEL Albuterol Sulfate (Albuterol Sulfate 90 Mcg 8 Gm Inhaler) 2 puff INHALE Q4H PRN PRN Reason: Shortness of Breath/Wheezing Atorvastatin Calcium (Atorvastatin Calcium 40 Mg Tablet) 40 mg PO BEDTIME [facility] Last Admin: 06/10/23 20:17 Dose: 40 mg Documented By: ROBEL Docusate Sodium (Docusate Sodium 100 Mg Capsule) 100 mg PO DAILY PRN PRN Reason: Constipation Enoxaparin Sodium (Enoxaparin Sodium 40 Mg/0.4 Ml Syringe) 40 mg SUBCUT Q24H [facility] Last Admin: 06/10/23 14:19 Dose: 40 mg Documented By: JAKE Ergocalciferol (Ergocalciferol (Vitamin D2) 1,250 Mcg Capsule) 1,250 mcg PO We@0900 [facility] Fentanyl (Fentanyl Citrate/Pf 100 Mcg/2 Ml Vial) 50 mcg IVPUSH Q5M PRN; Protocol PRN Reason: Pain, Severe (Pain Scale 7-10) Fluticasone Propionate (Fluticasone Propionate Nasal 16 Gm [place]) 1 spray NOSTRIL-B DAILY [facility] Last Admin: 06/11/23 09:26 Dose: Not Given Documented By: JAKE Non-Admin Reason: Med Not Available Fluticasone/Vilanterol (Fluticasone/Vilanterol 100/25 Blst.W.Dev) 1 puff INHALE RDAILY [facility] Last Admin: 06/11/23 07:35 Dose: 1 puff Documented By: MEGA Montelukast Sodium (Montelukast Sodium 10 Mg Tablet) 10 mg PO BEDTIME [facility] Last Admin: 06/10/23 20:17 Dose: 10 mg Documented By: ROBEL Morphine Sulfate (Morphine Sulfate 2 Mg/Ml Cartridge) 2 mg IVPUSH Q4H PRN; Protocol PRN Reason: Pain, Severe (Pain Scale 7-10) Last Admin: 06/11/23 00:06 Dose: 2 mg Documented By: ROBEL Ondansetron HCl (Ondansetron Hcl 4 Mg/2 Ml Vial) 4 mg IVPUSH Q8H PRN PRN Reason: Nausea and Vomiting Last Admin: 06/10/23 14:24 Dose: 4 mg Documented By: JAKE Phenytoin Sodium (Phenytoin Sodium Extended 100 Mg Capsule) 300 mg PO BEDTIME [facility] Last Admin: 06/10/23 20:17 Dose: 300 mg Documented By: ROBEL Sodium Chloride (0.9 % Sodium Chloride Flush 3 Ml Syringe) 3 ml IVFLUSH QSHIFT [facility] Last Admin: 06/11/23 09:26 Dose: 3 ml Documented By: JAKE Labs 06/11/23 05:18 06/11/23 05:18 Labs: Laboratory Results - last 24 hr 06/11/23 05:18 MCV 92.6 MCH 30.9 MCHC 33.3 RDW 12.4 Plt Count 185 MPV 10.5 Absolute Nucleated RBC 0.000 Nucleated RBC % (auto) 0.0 Anion Gap 12 Estim Creat Clear Calc 107.5 Estimated GFR > 60 Fasting Glucose 105 H Calcium 8.5 Assessment and Plan (1) Closed fracture of left hip: Status: Acute Plan 67F PMH COPD, hld, osteoporosis, TBI, epilepsy, presented with left hip pain after mechanical fall complicated by left hip fracture left hip fracture pod 2 pain control pt recommending str epilepsy phenytoin copd stable hld statin full code reason for continued hospitalization:auth Time Spent With Patient Time: Total time managing care of this patient today ____ minutes. Quality Stroke Does the patient have a stroke diagnosis?: No VTE Prior VTE?: No VTE Risk Level:: Medical - moderate - high VTE Device Contraindication: N/A - Device Ordered VTE Drug Contraindication: Treatment Not Indicated
[2023-06-11] MEDS: ondansetron HCL 4 MG/2 ML VIAL IVPUSH ×2 (11:02→19:54)
[2023-06-11] MEDS: Enoxaparin Sodium 40 MG/0.4 ML SYRINGE SUBCUT (15:41)
[2023-06-11 15:55] VITALS: BP 128/64; PULSE 89; RESP 18; TEMP 36.3; O2SAT 98
[2023-06-11 16:30] LABS: Appearance Urine Turbid; Color Urine Dark Yellow; Glucose Urine UA 100 mg/dL (Negative); Leukocyte Esterase Urine Trace (Negative); Nitrite Urine Negative (Negative); PH 5.5 (5.0-9.0); Specific Gravity - Urine >= 1.030 (1.005-1.025); UMIC TRIGGER UACC YES; Urine Blood Negative (Negative); Urine Ketones Negative (Negative); Urine Protein 30 (1+) mg/dL (Neg-Trace)
[2023-06-11 16:33] LABS: Bacteria Urine None Seen (None Seen); Hyaline Casts Urine 0-2 /LPF (0-2); RBC Urine 0-2 /HPF (0-2); Squamous Epithelial Cell Urine 0-2 /HPF (0-2); WBC Urine 0-5 /HPF (0-5)
--- NOTE | 2023-06-11 18:42 | PM.PNORT ---
Subjective Subjective Date of Service: 06/11/23 Principal diagnosis: left hip fx Interval history: No overnight events complains of pain not cooperative with PT Physical Exam Vital Signs: Vital Signs: Last Vital Signs Temp 97.3 F 06/11/23 15:55 Pulse 89 06/11/23 15:55 Resp 18 06/11/23 15:55 BP 128/64 06/11/23 15:55 Pulse Ox 98 06/11/23 15:55 O2 Del Method Nasal Cannula 06/11/23 15:55 O2 Flow Rate 3 06/11/23 15:55 BMI result Body Mass Index 27.8 Extrem: Other: dressing c/d/i SILT moving hip without pain (passive) Procedures Date of Service Date of Service: 06/11/23 Progress Note: A&P Assessment and plan (1) Closed fracture of left hip: Status: Acute Assessment and Plan: OOB TID PT-WBAT Minima[facility] narcotics Lovenox and SCDs Dispo planning Time Spent With Patient Time: Total time managing care of this patient today ____ minutes. Quality Stroke Does the patient have a stroke diagnosis?: No VTE Prior VTE?: No VTE Risk Level:: Medical - moderate - high VTE Device Contraindication: N/A - Device Ordered VTE Drug Contraindication: Treatment Not Indicated
[2023-06-11] MEDS: Montelukast Sodium 10 MG TABLET PO (19:57)
[2023-06-11] MEDS: Phenytoin Sodium Extended 100 MG CAPSULE 300 MG PO (19:57)
[2023-06-11] MEDS: Atorvastatin Calcium 40 MG TABLET PO (19:57)
[2023-06-11 20:00] VITALS: BP 121/63; PULSE 91; RESP 18; TEMP 36.8
[2023-06-12] MEDS: 0.9 % Sodium Chloride Flush 3 ML SYRINGE IVFLUSH (00:45)
[2023-06-12 03:10] VITALS: BP 122/61; PULSE 91; RESP 16; TEMP 36.3; O2SAT 97
[2023-06-12 07:51] VITALS: BP 122/62; PULSE 89; RESP 16; TEMP 36.2; O2SAT 96
[2023-06-12 08:34] VITALS: BP 122/62; PULSE 89; O2SAT 96
--- NOTE | 2023-06-12 08:57 | P.DS_ITS ---
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 Pt is visually impaired but ambulates on her own at home. States she tripped over her oldest dog this morning when she did not see him coming out of the kitchen. Pt fell on her left side on the ceramic flow and immediately felt 10/10 pain. Denies LOC, head strike. Reports some nausea and feeling unwell when she tries to move, but otherwise denies any other symptoms or acute complaints. No headache. Denies fever, chills, abdominal pain. No chest pain/pressure, palpitations. No SOB. Currently experiencing 5/10 pain at rest. In the ED patient was hemodynamically stable with slightly elevated BP of 140/75. Labs were grossly unremarkable. H&H stable. No leukocytosis. Electrolytes WNL. Hepatic and renal function WNL. CXR showed no active cardiopulmonary disease. X-ray of left hip showed intertrochanteric nondisplaced fracture. Pt was treated with oxycodone 5 mg p.o., acetaminophen, and ondansetron. Pt will be admitted to the hospital for treatment of left hip fracture with likely surgical intervention tomorrow. hospital course: patient was admitted for left hip fracture, underwent surgery, patient recovering well. will continue lovenox, pt at str (expected to require less than 30 days), outpatient ortho eval. for epilepsy was continued on phenytoin, for copd remained stable, for hld continued on statin. Time Spent with Patient Time attestation: Total time managing care of this patient today ____ minutes. Discharge coordination time: Greater than 30 minutes Quality: Safe Use of Opioids Does Pt have an Active Cancer Diagnosis on the Problem List?: No Quality: Stroke Does the patient have a stroke diagnosis?: No Physical Exam Vital Signs: Vital Signs: Last Vital Signs Temp 97.1 F 06/12/23 07:51 Pulse 89 06/12/23 08:34 Resp 16 06/12/23 07:51 BP 122/62 06/12/23 08:34 Pulse Ox 96 06/12/23 08:34 O2 Del Method Nasal Cannula 06/12/23 07:51 O2 Flow Rate 3 06/12/23 07:51 BMI result Body Mass Index 27.8 Extrem: Other: dressing c/d/i SILT moving hip without pain (passive) DS: Data Data Completed and Pending Labs on day of discharge: Laboratory Results - last 24 hr 06/11/23 16:20 Urine Color Dark Yellow Urine Appearance Turbid Urine pH 5.5 Ur Specific [place] >= 1.030 H Urine Protein 30 (1+) H Urine Glucose (UA) 100 H Urine Ketones Negative Urine Blood Negative Urine Nitrite Negative Ur Leukocyte Esterase Trace H Urine RBC 0-2 Urine WBC 0-5 Ur Squamous Epith Cells 0-2 Urine Bacteria None Seen Hyaline Casts 0-2 Discharge Plan Discharge Anticipated Discharge Date/Time: 06/12/23 08:55 Patient Disposition: Xfer SNF Discharge Diagnosis: hip fracture Referrals: juan rehman [Other] - 1 Week Kitty Schuler NP [Primary Care Provider] - 1 Week Discharge Medications: New enoxaparin 40 mg/0.4 mL Syringe 40 mg subcut Q24H Qty: 0 0RF Continued atorvastatin 40 mg tablet 40 mg PO BEDTIME phenytoin sodium extended 100 mg capsule 300 mg PO BEDTIME montelukast 10 mg tablet 10 mg PO BEDTIME ergocalciferol (vitamin D2) 1,250 mcg (50,000 unit) Capsule 1,250 mcg PO WE albuterol sulfate [Ventolin HFA] 90 mcg/actuation HFA aerosol inhaler 2 puff inhalation Q4-6H PRN (Reason: SOB) fluticasone propionate 50 mcg/actuation [place],Suspension 1 spray INTRANASAL DAILY Rx Instructions: administer into each nostril fluticasone propion-salmeterol [Advair HFA] 115-21 mcg/actuation HFA aerosol inhaler 2 puff inhalation BID Discharge Orders: Discharge Order (Routine); Ordered 06/13/23 Ordered By: Alex Sarkar Diet: Advance to usual diet Activity on Discharge: As tolerated Stand Alone Forms: Patient Portal Discharge page Care Plan Goals: recovery Health Concerns: hip fracture Plan of Treatment: lovenox, pt, ortho follow up Gait training, strengthening, ADLs Continue lovenox [id number] Keep dressing clean,dry and intact-no showering or tub baths Follow up with Orthopedics in 2 weeks Assessment: see above Discharge Date/Time: 06/13/23 13:09
[2023-06-12] MEDS: Fluticasone Propionate Nasal 16 GM SPRAY 1 SPRAY NOSTRIL-B (09:19)
--- NOTE | 2023-06-12 09:22 | P.PNIM_ITS ---
Subjective Subjective Date of Service: 06/12/23 Interval History: pain controlled at rest, in pain wiht movement Physical Exam 2 Vital Signs: Vital Signs: Last Vital Signs Temp 97.1 F 06/12/23 07:51 Pulse 89 06/12/23 08:34 Resp 16 06/12/23 07:51 BP 122/62 06/12/23 08:34 Pulse Ox 96 06/12/23 08:34 O2 Del Method Nasal Cannula 06/12/23 07:51 O2 Flow Rate 3 06/12/23 07:51 BMI result Body Mass Index 27.8 Extrem: Other: dressing c/d/i SILT moving hip without pain (passive) Objective Data Active Medications Acetaminophen (Acetaminophen 325 Mg Tablet) 650 mg PO Q6H PRN PRN Reason: Pain, Mild (Pain Scale 1-3) Last Admin: 06/11/23 11:02 Dose: 650 mg Documented By: JAKE Albuterol Sulfate (Albuterol Sulfate 90 Mcg 8 Gm Inhaler) 2 puff INHALE Q4H PRN PRN Reason: Shortness of Breath/Wheezing Atorvastatin Calcium (Atorvastatin Calcium 40 Mg Tablet) 40 mg PO BEDTIME [facility] Last Admin: 06/11/23 19:57 Dose: 40 mg Documented By: JAKE Docusate Sodium (Docusate Sodium 100 Mg Capsule) 100 mg PO DAILY PRN PRN Reason: Constipation Enoxaparin Sodium (Enoxaparin Sodium 40 Mg/0.4 Ml Syringe) 40 mg SUBCUT Q24H [facility] Last Admin: 06/11/23 15:41 Dose: 40 mg Documented By: JAKE Ergocalciferol (Ergocalciferol (Vitamin D2) 1,250 Mcg Capsule) 1,250 mcg PO We@0900 [facility] Fentanyl (Fentanyl Citrate/Pf 100 Mcg/2 Ml Vial) 50 mcg IVPUSH Q5M PRN; Protocol PRN Reason: Pain, Severe (Pain Scale 7-10) Fluticasone Propionate (Fluticasone Propionate Nasal 16 Gm [place]) 1 spray NOSTRIL-B DAILY [facility] Last Admin: 06/12/23 09:19 Dose: 1 spray Documented By: JAMEE Fluticasone/Vilanterol (Fluticasone/Vilanterol 100/25 Blst.W.Dev) 1 puff INHALE RDAILY [facility] Last Admin: 06/12/23 08:11 Dose: Not Given Documented By: JUANY Non-Admin Reason: Med Not Available Montelukast Sodium (Montelukast Sodium 10 Mg Tablet) 10 mg PO BEDTIME [facility] Last Admin: 06/11/23 19:57 Dose: 10 mg Documented By: JAKE Morphine Sulfate (Morphine Sulfate 2 Mg/Ml Cartridge) 2 mg IVPUSH Q4H PRN; Protocol PRN Reason: Pain, Severe (Pain Scale 7-10) Last Admin: 06/11/23 19:54 Dose: 2 mg Documented By: JAKE Ondansetron HCl (Ondansetron Hcl 4 Mg/2 Ml Vial) 4 mg IVPUSH Q8H PRN PRN Reason: Nausea and Vomiting Last Admin: 06/11/23 19:54 Dose: 4 mg Documented By: JAKE Oxycodone HCl (Oxycodone Hcl Immed Release 5 Mg Tablet) 5 mg PO Q4H PRN PRN Reason: moderate pain Phenytoin Sodium (Phenytoin Sodium Extended 100 Mg Capsule) 300 mg PO BEDTIME [facility] Last Admin: 06/11/23 19:57 Dose: 300 mg Documented By: JAKE Sodium Chloride (0.9 % Sodium Chloride Flush 3 Ml Syringe) [facility] Last Admin: 06/12/23 09:19 Dose: Not Given Documented By: JAMEE Non-Admin Reason: No Access Labs 06/11/23 05:18 06/11/23 05:18 Labs: Laboratory Results - last 24 hr 06/11/23 16:20 Urine Color Dark Yellow Urine Appearance Turbid Urine pH 5.5 Ur Specific Boring >= 1.030 H Urine Protein 30 (1+) H Urine Glucose (UA) 100 H Urine Ketones Negative Urine Blood Negative Urine Nitrite Negative Ur Leukocyte Esterase Trace H Urine RBC 0-2 Urine WBC 0-5 Ur Squamous Epith Cells 0-2 Urine Bacteria None Seen Hyaline Casts 0-2 Assessment and Plan (1) Closed fracture of left hip: Status: Acute Plan 67F PMH COPD, hld, osteoporosis, TBI, epilepsy, presented with left hip pain after mechanical fall complicated by left hip fracture left hip fracture pod 3 pain control pt recommending str epilepsy phenytoin copd stable hld statin full code reason for continued hospitalization:auth Time Spent With Patient Time: Total time managing care of this patient today ____ minutes. Quality Stroke Does the patient have a stroke diagnosis?: No VTE Prior VTE?: No VTE Risk Level:: Medical - moderate - high VTE Device Contraindication: N/A - Device Ordered VTE Drug Contraindication: Treatment Not Indicated
[2023-06-12] MEDS: Ondansetron ODT 4 MG TAB.RAPDIS TRANSLINGU (10:51)
[2023-06-12] MEDS: polyethylene glycoL 3350 17 GM POWD.PACK PO (11:20)
[2023-06-12] MEDS: oxyCODONE HCl Immed Release 5 MG TABLET PO ×2 (11:22→19:59)
--- NOTE | 2023-06-12 13:29 | MHC.CM.PN ---
Patient experiencing constipation. Miralax has been administered. Patient is concerned about incontinence. PMH is TBI; which is causing her to be anxious about incontinence. DP discharge tomorrow to [facility].
[2023-06-12] MEDS: Enoxaparin Sodium 40 MG/0.4 ML SYRINGE SUBCUT (13:43)
[2023-06-12 15:16] VITALS: BP 120/63; PULSE 95; RESP 20; TEMP 36.8; O2SAT 96
[2023-06-12 16:00] VITALS: PULSE 94; RESP 20; O2SAT 97
[2023-06-12 19:09] VITALS: BP 110/58; PULSE 96; RESP 18; TEMP 36.9; O2SAT 90
[2023-06-12] MEDS: Phenytoin Sodium Extended 100 MG CAPSULE 300 MG PO (19:58)
[2023-06-12] MEDS: Montelukast Sodium 10 MG TABLET PO (19:59)
[2023-06-12] MEDS: Atorvastatin Calcium 40 MG TABLET PO (19:59)
[2023-06-13 03:42] VITALS: BP 117/54; PULSE 85; RESP 16; TEMP 36.4; O2SAT 93
[2023-06-13 07:26] VITALS: BP 137/72; PULSE 83; RESP 18; TEMP 36.2; O2SAT 93
[2023-06-13] MEDS: Fluticasone/Vilanterol 100/25 BLST.W.DEV 1 PUFF INHALE (07:57)
[2023-06-13 08:01] VITALS: PULSE 83; RESP 18; O2SAT 93
[2023-06-13] MEDS: Fluticasone Propionate Nasal 16 GM SPRAY 1 SPRAY NOSTRIL-B (08:06)
[2023-06-13] MEDS: Acetaminophen 325 MG TABLET 650 MG PO (08:20)
--- NOTE | 2023-06-13 10:23 | P.CDIM_ITS ---
PROVIDER RESPONSE TEXT: To clarify, the appropriate diagnosis supported by the clinical indicators: Acute blood loss anemia QUERY TEXT: PHYSICIAN'S DOCUMENTATION REQUEST Date of Query: 06/13/2023 10:13 AM EDT Patient Name: Shari Chavez Admit Date: 06/08/2023 Dear Alex Sarkar, A review of the medical record indicates additional documentation may be needed. Please review below and update the documentation accordingly. Clinical Indicators: H&H on 06/08/23: 13.3/39.9 H&H on 06/11/23: 9.6/28.8 Based on the above, could you clarify which of the following is the most likely type of anemia you ar e evaluating, treating, and/or monitoring? Acute blood loss anemia Acute blood loss anemia with baseline chronic anemia (specify type) Anemia of chronic disease indicate if neoplastic disease, CKD, or other Chronic iron deficiency anemia due to blood loss Vitamin B12 deficiency anemia indicate etiology, such as intrinsic factor deficiency, malabsorption, transcobalamin II deficiency, dietary, etc Folate deficiency anemia indicate etiology, such as dietary, drug-induced, etc Protein deficiency anemia Other (explain)Clinically unable to determine (explain)Thank you, Almita Garza RN Use of terms such as suspected, likely, concern for, or probable (associated with a specific diagnosi s that is being evaluated, monitored, or treated as if it exists) are acceptable and can be coded in the inpatient se tting, when documented at the time of discharge. Please use your independent medical judgment in providing your response. THIS QUERY IS PART OF THE PERMANENT MEDICAL RECORD
--- NOTE | 2023-06-22 10:59 | W.PM.OPN ---
Operative Note Operative Note Date of Service: 06/09/23 Narrative: Date of Service: 06/09/23 Pre-op diagnosis: left hip IT fx Post-op diagnosis: same Procedure: Left hip IMN Implants: Hardy [id number] 125 deg imn with 100 mm hip screw and 40 mm distal interlock Surgeon: Charly Chong MD Anesthesia: GETA and local Was an Braille Proofreader used for this Procedure?: No Estimated blood loss (mL): 100 IV fluids (mL): 750 Pathology: none sent Condition: stable Disposition: PACU Procedure in detail: Patient was brought to the operating room and prepped and draped in standard sterile fashion. Time-out was called to identify proper site procedure proper surgeon and IV antibiotics per weight were administered. She was positioned on the fracture table and a traction and slight internal rotation were performed and biplanar fluoroscopy confirmed initial fracture reduction. I then made a stab incision proximal to the greater trochanter in using a guidewire made a entry point just lateral to the tip of the greater trochanter and placed a guidewire into the femoral metadiaphysis. I selected a 180mm nail. I placed the nail. I turned my attention to the hip screw where I used a guidewire and a tip apex distance of less than 1.5 measured my hip screw. I then pre drilled and placed a hip screw using biplanar fluoroscopy. Once I was satisfied with the position of the hip screw I turned my attention to the distal aspect of the nail. Using the static position with the guide, I placed 1 static distal interlocking screw in standard AO technique. I then removed all I then placed my set screw proximally and removed all extraneous instrumentation. Final biplanar radiographs were taken. I was satisfied with the position of the hardware and the fracture reduction. I think copiously irrigated closed with absorbable sutures maryellen and injected 30 mL of into the area of the incisions. Traction was let down patient was placed in sterile dressing awakened from anesthesia brought to recovery room stable condition there were no known complications.
== END 2023-06-13 13:09 | disposition skilled nursing facility (03) | DRG 481 ==
LOC: HO.ED 13:46 → HO.EDOVER 15:36 → HO.S3 16:01
PROVIDERS: Orthopaedic Surgery; Physician Assistant; Admitting Provider Student in an Organized Health Care Education/Training Program; Emergency Provider Emergency Medicine; PCP Nurse Practitioner Adult Health; Visit Provider Internal Medicine
PROC: 0QH736Z Insertion of Intramedullary Internal Fixation Device into Left Upper Femur, Percutaneous Approach (ICD-10-PCS; principal; 2023-06-09 12:00)
DX: S72.145A Nondisplaced intertrochanteric fracture of left femur, initial encounter for closed fracture (principal); D62 Acute posthemorrhagic anemia; W01.0XXA Fall on same level from slipping, tripping and stumbling without subsequent striking against object, initial encounter; J43.9 Emphysema, unspecified; G40.909 Epilepsy, unspecified, not intractable, without status epilepticus; Z87.820 Personal history of traumatic brain injury; Z87.891 Personal history of nicotine dependence; Z79.51 Long term (current) use of inhaled steroids; Z79.899 Other long term (current) drug therapy
CPT/HCPCS: 36415; 71045; 73502; 80048; 80076; 81001; 83735; 85025; 85027; 85610; 85730; 86850; 86900; 86901; 94640; 97162; 99285; C1713; C1769; J0690; J1100; J1650; J1885; J2250; J2270; J2371; J2405; J2550; J2795; J3010

== ENCOUNTER → 2023-06-08 10:30 | Outpatient (BNV) | payer MEDICARE, SELFPAY | PROVIDERS: Emergency Provider Emergency Medicine; PCP Nurse Practitioner Adult Health; Visit Provider Orthopaedic Surgery | DX: S72.002A Fracture of unspecified part of neck of left femur, initial encounter for closed fracture (principal) | CPT/HCPCS: 27245; 99024; 99284 ==

== ENCOUNTER → 2023-06-08 15:22 | Outpatient (BNV) | payer MEDICARE, SELFPAY | PROVIDERS: Admitting Provider Student in an Organized Health Care Education/Training Program; Emergency Provider Emergency Medicine; PCP Nurse Practitioner Adult Health; Visit Provider Student in an Organized Health Care Education/Training Program | DX: S72.002A Fracture of unspecified part of neck of left femur, initial encounter for closed fracture (principal) | CPT/HCPCS: 99223; 99232; 99239 ==

== ENCOUNTER 2023-06-22 16:19 | Outpatient (REF) | payer MEDICARE, SELFPAY | END 2023-06-22 16:20 | disposition home or self-care (01) | LOC: HO.HOSX 16:19 | PROVIDERS: Visit Provider Physician Assistant | DX: Z13.89 Encounter for screening for other disorder (principal) ==

== ENCOUNTER 2023-06-30 11:01 | Outpatient (AMB) | payer MEDICARE, SELFPAY ==
--- NOTE | 2023-06-30 11:01 | A.OFFVIS_ITS ---
Intake Intake Visit Reasons: PO-Left hip IMN 06/09/23NE Intake Note: Shari is a 67 year old female who presents today with her for a post op appointment s/p left hip IMN 06/09/23 NE. Patient reports doing well, however she is a bit stiff. Allergies Horse/Equine Containing Products [Horse/Equine Product Derivatives] Allergy (Unknown, Verified 06/30/23 11:01) RASH/SWELLING TO HORSE TETANUS Penicillins [PENICILLINS] Allergy (Unknown, Verified 06/30/23 11:01) ? phenobarbital [PHENOBARBITAL] Allergy (Unknown, Verified 06/30/23 11:01) ? SEIZURE From Novocain Allergy (Unknown, Uncoded 05/14/20 15:39) UNKNOWN HPI PO-Left hip IMN 06/09/23NE HPI Details 67-[facility] post left hip IM nailing, which was performed on 06/09/[address] Chong. The patient reports she is doing well, but still has some stiffness. [facility] Social History Household Members: Spouse Household Members Other:: 1 Housing: House Do you presently have visiting nurse or other home services: No Patient Tobacco Use Status: Former Tobacco user Tobacco use type: Cigarette Advance Directives Date on File: 06/08/23 service: No Review of Systems Const All systems reviewed & are unremarkable except as noted in HPI and below Physical Exam Const General: cooperative, healthy appearing and no acute distress Resp Effort & Inspection: normal respiratory effort and able to speak in complete sentences Cardio Rate: regular rate Peripheral pulses: Peripheral pulses 2+ throughout GI Palpation (GI): Soft to palpation Skin Lesions: no lesions Rashes: no rashes Extrem Other: Left hip: Incision site is clean, dry, and intact. [place] intact. No surrounding erythema or drainage. No signs of infection. Good hip flexion, extension, internal and external rotation. NVI. Assessment & Plan Assessment & Plan (1) Closed fracture of left hip: Code(s): S72.002A - Fracture of unspecified part of neck of left femur, initial encounter for closed fracture Qualifiers: Encounter type: initial encounter Qualified Code(s): S72.002A - Fracture of unspecified part of neck of left femur, initial encounter for closed fracture Plan Ms. Chavez is a 67-year-old female who presents in the office today 3 weeks status post left hip IM nailing, which was performed on 06/09/[address] Chong. The patient reports she is doing well, but still has some stiffness. The patient will work with physical therapy on glute, quad, and core strengthening with gait training with a walker. Follow up will be in 4 weeks, or sooner if needed. X-rays of the left hip which were obtained while in the office today and were reviewed by me, Maribel Morales PA-C, revealed intact orthopedic hardware with routine healing. Orders: Orders XR femur LT 2V Today S72.002A - Fracture of unspecified part of neck of left femur, initial encounter for closed fracture Patient Instructions: Scribed for Maribel Morales PA-C by Angelina Castro, medical device engineer, on 06/30/2023 at 11:15 am, EST. Coding Level of Care Code Global (07827) Diagnoses Closed fracture of left hip S72.002A Encounter type: initial encounter
== END 2023-06-30 11:41 | disposition home or self-care (01) ==
LOC: HO.HOS 11:01
PROVIDERS: PCP Nurse Practitioner Adult Health; Visit Provider Physician Assistant
DX: S72.002A Fracture of unspecified part of neck of left femur, initial encounter for closed fracture (principal)
CPT/HCPCS: 99024

== ENCOUNTER 2023-06-30 15:35 | Outpatient (REF) | payer MEDICARE, SELFPAY ==
--- NOTE | ~2023-06-30 | XR_ITS ---
EXAMINATION: XR FEMUR, LEFT CLINICAL INFORMATION: Left femur fracture COMPARISON: Left femur x-rays on 06/08/2023 TECHNIQUE: AP and crosstable lateral views of the left femur were obtained. FINDINGS: BONES: BONES: There is close to anatomical reduction and internal fixation of the left femoral intratrochanteric fracture, fixation with interlocking hip compression screw and gamma nail, proximal left femoral shaft transfixion screw. JOINTS: Alignment of joints is normal. SOFT TISSUE: Soft tissue is normal. No radiopaque foreign body or abnormal air collection is seen. XR/XR femur LT 2V IMPRESSION: Interval successful internal fixation of left femoral intertrochanteric fracture with interlocking hip compression screw and gamma nail, with close to anatomical reduction.
== END 2023-06-30 15:36 | disposition home or self-care (01) ==
LOC: HO.HOSX 15:35
PROVIDERS: Visit Provider Physician Assistant
DX: S72.002D Fracture of unspecified part of neck of left femur, subsequent encounter for closed fracture with routine healing (principal); X58.XXXD Exposure to other specified factors, subsequent encounter
CPT/HCPCS: 73552; 99212

== ENCOUNTER 2023-07-24 09:10 | Outpatient (REF) | payer MEDICARE, SELFPAY | END 2023-07-24 09:11 | disposition home or self-care (01) | LOC: HO.HOSX 09:10 | PROVIDERS: Visit Provider Physician Assistant | DX: Z13.89 Encounter for screening for other disorder (principal) ==

== ENCOUNTER 2023-07-28 12:42 | Outpatient (REF) | payer MEDICARE, SELFPAY ==
--- NOTE | ~2023-07-28 | XR_ITS ---
EXAMINATION: XR FEMUR, LEFT CLINICAL INFORMATION: Follow-up left femoral neck fracture. COMPARISON: Radiographs dated 06/30/2023. TECHNIQUE: AP and lateral views of the left femur were obtained. FINDINGS: There is bony demineralization. There is interim healing of the previously noted left femoral neck fracture, with good callus formation. The fracture line is now faint. The proximal left femoral intramedullary jose g and compression and fixator screws are intact, without hardware failure or loosening noted. There are heterotopic calcifications noted adjacent to the femoral neck. The left acetabular joint space is well-maintained, as are the sacroiliac joints and the pubic symphysis. No foreign body is seen. XR/XR femur LT 2V IMPRESSION: There is stable, well-maintained alignment of the left femoral neck fracture status-post ORIF. No hardware failure or loosening is seen. The fracture line is faintly seen, with good callus formation.
== END 2023-07-28 12:43 | disposition home or self-care (01) ==
LOC: HO.HOSX 12:42
PROVIDERS: PCP Nurse Practitioner Adult Health; Visit Provider Physician Assistant
DX: S72.002D Fracture of unspecified part of neck of left femur, subsequent encounter for closed fracture with routine healing (principal); M25.552 Pain in left hip; R10.30 Lower abdominal pain, unspecified; X58.XXXD Exposure to other specified factors, subsequent encounter
CPT/HCPCS: 73552; 99212

== ENCOUNTER 2023-07-28 12:42 | Outpatient (AMB) | payer MEDICARE, SELFPAY ==
--- NOTE | 2023-07-28 12:45 | A.OFFVIS_ITS ---
Intake Intake Visit Reasons: PO-Left hip IMN 06/09/23NE Intake Note: Shari is a 67 year old female today with her for a post op appointment s/p left hip IMN 06/09/23 NE. States her pain is mild. Patiemt is using a walker ambulate. Allergies Horse/Equine Containing Products [Horse/Equine Product Derivatives] Allergy (Unknown, Verified 07/28/23 13:02) RASH/SWELLING TO HORSE TETANUS Penicillins [PENICILLINS] Allergy (Unknown, Verified 07/28/23 13:02) ? phenobarbital [PHENOBARBITAL] Allergy (Unknown, Verified 07/28/23 13:02) ? SEIZURE From Novocain Allergy (Unknown, Uncoded 07/28/23 13:02) UNKNOWN HPI PO-Left hip IMN 06/09/23NE HPI Details Patient presents to the office today for routine followup s/p left hip IM Nail. Patient is ambulating with the use of a walker. Occasional groin pain. No additional complaints. [facility] Social History Household Members: Spouse Household Members Other:: 1 Housing: House Do you presently have visiting nurse or other home services: No Patient Tobacco Use Status: Former Tobacco user Tobacco use type: Cigarette Advance Directives Date on File: 06/08/23 service: No Review of Systems Const All systems reviewed & are unremarkable except as noted in HPI and below Physical Exam Const General: cooperative, healthy appearing and no acute distress Resp Effort & Inspection: normal respiratory effort and able to speak in complete sentences Cardio Rate: regular rate Peripheral pulses: Peripheral pulses 2+ throughout GI Palpation (GI): Soft to palpation Skin Lesions: no lesions Rashes: no rashes Extrem Other: Left hip: Incision site is clean, dry, and intact. No signs of infection. Good hip flexion, extension, internal and external rotation. NVI. Assessment & Plan Assessment & Plan (1) Closed fracture of left hip: Code(s): S72.002A - Fracture of unspecified part of neck of left femur, initial encounter for closed fracture Qualifiers: Encounter type: initial encounter Qualified Code(s): S72.002A - Fracture of unspecified part of neck of left femur, initial encounter for closed fracture Plan Ms. Chavez is a 67-year-old female who presents in the office today status post left hip IM nailing, performed on 06/09/[address] Chong. The patient reports she is doing well, but still has some stiffness. Ambulating with the use of a walker. The patient will continue to work with physical therapy on glute, quad, and core strengthening with gait training with a walker. Follow up will be in 6-8 weeks, or sooner if needed. X-rays of the left hip which were obtained while in the office today and were reviewed by me, Maribel Morales PA-C, revealed intact orthopedic hardware with routine healing. Orders: Orders XR femur LT 2V Today S72.002A - Fracture of unspecified part of neck of left femur, initial encounter for closed fracture Coding Level of Care Code Global (89347) Diagnoses Closed fracture of left hip S72.002A Encounter type: initial encounter
== END 2023-07-28 15:17 | disposition home or self-care (01) ==
PROVIDERS: PCP Nurse Practitioner Adult Health; Visit Provider Physician Assistant
DX: S72.002A Fracture of unspecified part of neck of left femur, initial encounter for closed fracture (principal)
CPT/HCPCS: 99024

== ENCOUNTER 2023-09-08 10:31 | Outpatient (REF) | payer MEDICARE, SELFPAY | END 2023-09-08 10:32 | disposition home or self-care (01) | LOC: HO.HOSX 10:31 | PROVIDERS: Visit Provider Physician Assistant | DX: Z13.89 Encounter for screening for other disorder (principal) ==

== ENCOUNTER 2023-09-14 10:23 | Outpatient (REF) | payer MEDICARE, SELFPAY | END 2023-09-14 10:24 | disposition home or self-care (01) | LOC: HO.HOSX 10:23 | PROVIDERS: Visit Provider Physician Assistant | DX: Z13.89 Encounter for screening for other disorder (principal) ==

== ENCOUNTER 2023-10-06 10:08 | Outpatient (REF) | payer MEDICARE, SELFPAY ==
--- NOTE | ~2023-10-06 | XR_ITS ---
EXAMINATION: XR FEMUR, LEFT CLINICAL INFORMATION: Fracture of unspecified part of neck of femur initial encounter. COMPARISON: 08/03/2023, 07/28/2023, 06/30/2023 radiographs of the left femur. TECHNIQUE: AP and lateral views of the left femur were obtained, 4 views total. FINDINGS: The bones are diffusely demineralized. Redemonstration of proximal left femoral intramedullary jose g and compression and fixator screws traversing previously noted left femoral neck fracture. Hardware appears intact. Heterotopic soft tissue calcifications again seen adjacent to the femoral neck. Moderate degenerative changes in the left hip with joint space narrowing and hypertrophic change. Degenerative changes in the minimally imaged lower lumbar spine. Degenerative changes on limited views of the left knee. XR/XR femur LT 2V IMPRESSION: 1. Redemonstration of proximal left femoral intramedullary jose g and compression and fixator screws traversing previously noted left femoral neck fracture. Hardware appears intact. 2. Moderate degenerative changes in the left hip.
== END 2023-10-06 10:09 | disposition home or self-care (01) ==
LOC: HO.HOSX 10:08
PROVIDERS: Visit Provider Physician Assistant
DX: S72.002D Fracture of unspecified part of neck of left femur, subsequent encounter for closed fracture with routine healing (principal); X58.XXXD Exposure to other specified factors, subsequent encounter
CPT/HCPCS: 73552; 99212

== ENCOUNTER 2023-10-06 12:39 | Outpatient (AMB) | payer MEDICARE, SELFPAY ==
--- NOTE | 2023-10-06 13:09 | MHC.OFFVIS ---
Intake Intake Visit Reasons: OV - Left hip IMN 06/09/23 NE Intake Note: Shari is a 67 year old female who presents today with her for a follow up appointment s/p left hip IMN 06/09/23 NE. Patient states she is doing well. PT is going great, yet they were letting her know that they wanted her to try a cane but she states she is unable to use it. Allergies Horse/Equine Containing Products [Horse/Equine Product Derivatives] Allergy (Unknown, Verified 07/28/23 13:02) RASH/SWELLING TO HORSE TETANUS Penicillins [PENICILLINS] Allergy (Unknown, Verified 07/28/23 13:02) ? phenobarbital [PHENOBARBITAL] Allergy (Unknown, Verified 07/28/23 13:02) ? SEIZURE From Novocain Allergy (Unknown, Uncoded 07/28/23 13:02) UNKNOWN HPI OV - Left hip IMN 06/09/23 NE HPI Details 68-year-old female who presents in the office today 4 months status post left hip IM nailing, which was performed on 06/09/[address] Chong. I last saw the patient in the office on 06/30/2023 where she was referred to physical therapy. While in the office today the patient states she is doing well. She reports physical therapy is going great. She claims they have informed her they want her to attempt to use the cane, but she states she is unable to use it. [facility] Social History Household Members: Spouse Household Members Other:: 1 Housing: House Do you presently have visiting nurse or other home services: No Patient Tobacco Use Status: Former Tobacco user Tobacco use type: Cigarette Advance Directives Date on File: 06/08/23 service: No Review of Systems Const All systems reviewed & are unremarkable except as noted in HPI and below Physical Exam Const General: cooperative, healthy appearing and no acute distress Resp Effort & Inspection: normal respiratory effort and able to speak in complete sentences Cardio Rate: regular rate Peripheral pulses: Peripheral pulses 2+ throughout GI Palpation (GI): Soft to palpation Skin Lesions: no lesions Rashes: no rashes Extrem Other: Left hip: Normal to inspection. No ecchymosis, erythema, or edema. Incision site is well approximated and completely healed. No signs of infection. Full ROM in all planes. Assessment & Plan Assessment & Plan (1) Closed fracture of left hip: Comment: Left hip IM nailing 06/09/2023 Dr. Charly Chong Code(s): S72.002A - Fracture of unspecified part of neck of left femur, initial encounter for closed fracture Qualifiers: Encounter type: initial encounter Qualified Code(s): S72.002A - Fracture of unspecified part of neck of left femur, initial encounter for closed fracture Plan Ms. Chavez is a 68-year-old female who presents in the office today 4 months status post left hip IM nailing, which was performed on 06/09/[address] Chong. I last saw the patient in the office on 06/30/2023 where she was referred to physical therapy. While in the office today the patient states she is doing well. She reports physical therapy is going great. She claims they have informed her they want her to attempt to use the cane, but she states she is unable to use it. The patient is continuing to ambulate with a walker, which she feels more steady with. She can continue to do this. We also discussed home exercise program to work on glute, core, and quad stabilization and strengthening. She will continue to do home exercises. Follow up will be PRN, or sooner if needed. X-rays of the left femur which were obtained while in the office today and were reviewed by me, Maribel Morales PA-C, revealed intact orthopedic hardware with routine healing. Orders: Orders XR femur LT 2V Today S72.002A - Fracture of unspecified part of neck of left femur, initial encounter for closed fracture Patient Instructions: Scribed by Angelina Castro, director of graduate medical education, for Maribel Morales PA-C on 10/06/2023 at 12:42 pm, EST. Coding Level of Care Code Est Pt Level 3 (58829) Diagnoses Closed fracture of left hip S72.002A Encounter type: initial encounter
== END 2023-10-06 13:23 | disposition home or self-care (01) ==
PROVIDERS: PCP Nurse Practitioner Adult Health; Visit Provider Physician Assistant
DX: S72.002D Fracture of unspecified part of neck of left femur, subsequent encounter for closed fracture with routine healing (principal)
CPT/HCPCS: 99213